=== PATIENT | female | born 1940 | race Caucasian/White ===

== ENCOUNTER 2024-06-28 04:37 | Day surgery (SDC) | payer OTHER, BC ==
[2024-06-28 10:17] VITALS: RESP 18; BMI 24.5
[2024-06-28 12:01] VITALS: TEMP 97.9
[2024-06-28 12:32] VITALS: PULSE 65
[2024-06-28 12:33] VITALS: BP 133/63
== END 2024-06-28 13:15 | disposition home or self-care (01) ==
LOC: JASU-ENDO 04:37
PROVIDERS: ATTEND Internal Medicine Gastroenterology
PROC: 0DB78ZX Excision of Stomach, Pylorus, Via Natural or Artificial Opening Endoscopic, Diagnostic (ICD-10-PCS; 2024-06-28)
PROC: 0DB68ZX Excision of Stomach, Via Natural or Artificial Opening Endoscopic, Diagnostic (ICD-10-PCS; principal; 2024-06-28 10:45)
DX: K29.50 Unspecified chronic gastritis without bleeding (principal); R93.3 Abnormal findings on diagnostic imaging of other parts of digestive tract; Z87.19 Personal history of other diseases of the digestive system
CPT/HCPCS: 88305-TC; 88342-TC